=== PATIENT | male | born 1965 | race Caucasian/White ===

== ENCOUNTER → 2017-12-13 | Outpatient (CLI) | payer OTHER ==
[2017-12-13 15:14] LABS: BUN/CREATININE RATIO 15.4 (6.0-26.0); CALCIUM 8.8 mg/dL (8.4-10.2); POTASSIUM 4.2 mmol/L (3.6-5.0)
== END ==
LOC: LAB 14:47
PROVIDERS: Nurse Practitioner Family
DX: R10.9 Unspecified abdominal pain (principal); I10 Essential (primary) hypertension; E11.9 Type 2 diabetes mellitus without complications

== ENCOUNTER 2019-08-22 08:00 | Outpatient (RCR) | payer OTHER | END 2019-09-23 | disposition still patient (30) | LOC: OT | DX: S64.493A Injury of digital nerve of left middle finger, initial encounter (principal) ==

== ENCOUNTER → 2021-05-04 | Outpatient (CLI) | payer BC, OTHER | LOC: AMSURD 17:03 | DX: Z01.89 Encounter for other specified special examinations (principal) ==

== ENCOUNTER → 2021-05-31 | Outpatient (CLI) | payer BC, OTHER ==
[2021-05-31 16:47] LABS: BASO # 0.07 K/mm3 (0.02-0.10); EOS # 0.26 K/mm3 (0.04-0.40); EOS % 2.8 % (0.0-4.0); HEMATOCRIT 41.7 % (42.0-52.0); HEMOGLOBIN 13.8 g/dL (13.5-18.0); LYMPH# 1.82 K/mm3 (1.50-4.00); MEAN CELL VOLUME 94 fl (78-100); MEAN CORPUSCULAR HEMOGLOBIN 31 pg (27-31); MEAN CORPUSCULAR HGB CONC 33 g/dL (33-37); MEAN PLATELET VOLUME 10.9 fl (7.4-10.4); MONO # 0.81 K/mm3 (0.20-0.80); NEU # 6.43 K/mm3 (1.40-6.50); PLATELET COUNT 303 K/mm3 (130-400); RED BLOOD COUNT 4.45 M/mm3 (4.20-5.60); RED CELL DISTRIBUTION WIDTH 12.6 % (11.5-14.5); WHITE BLOOD COUNT 9.4 K/mm3 (4.8-10.8)
[2021-05-31 16:56] LABS: ALBUMIN 4.2 g/dL (3.5-5.0); POTASSIUM 4.1 mmol/L (3.5-5.1)
[2021-05-31 16:57] LABS: CALCIUM 9.3 mg/dL (8.3-10.5)
[2021-05-31 16:59] LABS: TOTAL PROTEIN 6.7 g/dL (6.4-8.3)
[2021-05-31 17:00] LABS: PROTHROMBIN TIME 10.8 SECONDS (9.0-12.0)
[2021-05-31 17:01] LABS: TOTAL BILIRUBIN 0.6 mg/dL (0.2-1.2)
[2021-05-31 19:06] LABS: URINE APPEARANCE HAZY; URINE BILIRUBIN NEGATIVE (NEGATIVE); URINE BLOOD NEGATIVE (NEGATIVE); URINE COLOR YELLOW; URINE GLUCOSE NEGATIVE (NEGATIVE); URINE KETONE NEGATIVE (NEGATIVE); URINE LEUKOCYTE ESTERASE TRACE (NEGATIVE); URINE NITRATE NEGATIVE (NEGATIVE); URINE PROTEIN(semi-quant) NEGATIVE (NEGATIVE); URINE UROBILINOGEN NORMAL (NORMAL); URINE WBC 0-1 /hpf (0-3)
== END ==
LOC: LAB 16:06 → RAD 16:06
PROVIDERS: Family Medicine
DX: Z01.89 Encounter for other specified special examinations (principal)

== ENCOUNTER → 2021-06-24 | Outpatient (CLI) | payer BC, OTHER | LOC: RAD 08:53 → VAS 08:53 | DX: M79.661 Pain in right lower leg (principal) ==

== ENCOUNTER 2021-06-29 09:42 | Outpatient (RCR) | payer BC, OTHER | END 2021-07-22 23:59 | disposition home or self-care (01) | LOC: PT 09:42 | DX: Z96.651 Presence of right artificial knee joint (principal) ==

== ENCOUNTER 2021-07-25 15:30 | Outpatient (RCR) | payer BC, OTHER | END 2021-08-22 | disposition home or self-care (01) | LOC: PT | DX: Z96.651 Presence of right artificial knee joint (principal) | CPT/HCPCS: G0283-GP ==

== ENCOUNTER → 2021-07-26 | Outpatient (CLI) | payer BC, OTHER | LOC: RAD 09:51 → VAS 09:51 → RAD 10:00 | DX: M79.661 Pain in right lower leg (principal); Z96.651 Presence of right artificial knee joint ==

== ENCOUNTER 2021-08-23 14:00 | Outpatient (RCR) | payer BC, OTHER | END 2021-09-19 | disposition home or self-care (01) | LOC: PT | DX: Z96.651 Presence of right artificial knee joint (principal) | CPT/HCPCS: G0283-GP ==

== ENCOUNTER 2021-09-22 14:51 | Outpatient (RCR) | payer BC, OTHER | END 2021-10-20 | disposition home or self-care (01) | LOC: PT | DX: Z96.651 Presence of right artificial knee joint (principal) ==

== ENCOUNTER 2021-11-15 10:56 | Outpatient (RCR) | payer BC, OTHER | END 2021-11-19 | disposition home or self-care (01) | LOC: PT | DX: M24.661 Ankylosis, right knee (principal); Z96.651 Presence of right artificial knee joint ==

== ENCOUNTER 2021-11-21 14:00 | Outpatient (RCR) | payer BC, OTHER | END 2021-12-20 | disposition home or self-care (01) | LOC: PT | DX: Z96.659 Presence of unspecified artificial knee joint (principal) | CPT/HCPCS: G0283-GP ==

== ENCOUNTER 2021-12-21 14:32 | Outpatient (RCR) | payer BC, OTHER | END 2022-01-19 | disposition still patient (30) | LOC: PT | DX: M24.661 Ankylosis, right knee (principal); Z96.651 Presence of right artificial knee joint ==

== ENCOUNTER 2022-01-24 08:21 | Outpatient (RCR) | payer BC, OTHER | END 2022-02-06 17:00 | disposition home or self-care (01) | LOC: PT 08:21 | DX: M24.669 Ankylosis, unspecified knee (principal); Z96.659 Presence of unspecified artificial knee joint ==

== ENCOUNTER → 2023-05-08 | Outpatient (CLI) | payer OTHER ==
[~2023-05-08] MED LIST: CYCLOBENZAPRINE10 M1 PO; KETOROLAC10 MG PO
== END ==
LOC: RAD 08:42
DX: M77.11 Lateral epicondylitis, right elbow (principal)

== ENCOUNTER → 2023-05-14 | Outpatient (CLI) | payer BC, OTHER ==
[2023-05-14 09:26] LABS: ALBUMIN 4.5 g/dL (3.5-5.0); SODIUM 140 mmol/L (136-145)
[2023-05-14 09:28] LABS: CALCIUM 9.6 mg/dL (8.3-10.5)
[2023-05-14 09:29] LABS: GLUCOSE 112 mg/dL (75-110); TOTAL PROTEIN 6.7 g/dL (6.4-8.3)
[2023-05-14 09:30] LABS: CARBON DIOXIDE 28 mmol/L (22-29)
[2023-05-14 09:31] LABS: TOTAL BILIRUBIN 0.8 mg/dL (0.2-1.2)
[2023-05-14 09:34] LABS: AST-SGOT 36 U/L (5-34)
[2023-05-14 09:35] LABS: ALT/SGPT 43 U/L (0-55)
[2023-05-14 16:18] LABS: BASO # 0.04 K/mm3 (0.02-0.10); EOS # 0.14 K/mm3 (0.04-0.40); EOS % 1.7 % (0.0-4.0); HEMATOCRIT 42.5 % (42.0-52.0); HEMOGLOBIN 14.2 g/dL (13.5-18.0); LYMPH# 1.95 K/mm3 (1.50-4.00); MEAN CELL VOLUME 96 fl (78-100); MEAN CORPUSCULAR HEMOGLOBIN 32 pg (27-31); MEAN CORPUSCULAR HGB CONC 33 g/dL (33-37); MEAN PLATELET VOLUME 10.6 fl (7.4-10.4); MONO # 0.69 K/mm3 (0.20-0.80); NEU # 5.62 K/mm3 (1.40-6.50); PLATELET COUNT 306 K/mm3 (130-400); RED BLOOD COUNT 4.41 M/mm3 (4.20-5.60); RED CELL DISTRIBUTION WIDTH 11.7 % (11.5-14.5); WHITE BLOOD COUNT 8.5 K/mm3 (4.8-10.8)
== END ==
LOC: LAB 08:57 → RAD 08:57
PROVIDERS: Nurse Practitioner Family
DX: L04.0 Acute lymphadenitis of face, head and neck (principal)
CPT/HCPCS: Q9967

== ENCOUNTER 2023-05-23 08:00 | Outpatient (RCR) | payer OTHER, BC | END 2023-06-21 | disposition home or self-care (01) | LOC: OT | DX: M25.521 Pain in right elbow (principal) ==

== ENCOUNTER → 2024-09-08 | Outpatient (CLI) | payer BC ==
[2024-09-08 15:33] LABS: BASO # 0.03 K/mm3 (0.02-0.10); EOS # 0.14 K/mm3 (0.04-0.40); EOS % 1.7 % (0.0-4.0); HEMATOCRIT 44.3 % (42.0-52.0); HEMOGLOBIN 14.9 g/dL (13.5-18.0); MEAN CELL VOLUME 94 fl (78-100); MEAN CORPUSCULAR HEMOGLOBIN 32 pg (27-31); MEAN CORPUSCULAR HGB CONC 34 g/dL (33-37); MEAN PLATELET VOLUME 9.7 fl (7.4-10.4); MONO # 0.72 K/mm3 (0.20-0.80); NEU # 5.73 K/mm3 (1.40-6.50); PLATELET COUNT 313 K/mm3 (130-400); RED BLOOD COUNT 4.72 M/mm3 (4.20-5.60); RED CELL DISTRIBUTION WIDTH 11.4 % (11.5-14.5); WHITE BLOOD COUNT 8.2 K/mm3 (4.8-10.8)
[2024-09-08 15:44] LABS: URINE APPEARANCE CLEAR (CLEAR); URINE BILIRUBIN NEGATIVE (NEGATIVE); URINE BLOOD NEGATIVE (NEGATIVE); URINE COLOR YELLOW (YELLOW); URINE GLUCOSE NEGATIVE (NEGATIVE); URINE KETONE NEGATIVE (NEGATIVE); URINE LEUKOCYTE ESTERASE NEGATIVE (NEGATIVE); URINE NITRATE NEGATIVE (NEGATIVE); URINE PROTEIN(semi-quant) NEGATIVE (NEGATIVE); URINE WBC 0-1 /hpf (0-3)
[2024-09-08 15:49] LABS: ALBUMIN 4.4 g/dL (3.5-5.0)
[2024-09-08 15:50] LABS: CALCIUM 9.1 mg/dL (8.3-10.5)
[2024-09-08 15:53] LABS: TOTAL BILIRUBIN 0.5 mg/dL (0.2-1.2)
[2024-09-08 17:00] LABS: PROTHROMBIN TIME 10.6 SECONDS (9.0-12.0)
== END ==
LOC: LAB 15:17
PROVIDERS: Family Medicine
DX: Z01.811 Encounter for preprocedural respiratory examination (principal); Z01.810 Encounter for preprocedural cardiovascular examination; Z01.89 Encounter for other specified special examinations; I44.30 Unspecified atrioventricular block